=== PATIENT | male | born 1995 | race Asian ===

== ENCOUNTER 2022-04-14 20:56 | Emergency (ER) | payer BC, SELFPAY ==
[2022-04-14 21:26] VITALS: BP 129/76; PULSE 93; RESP 17; TEMP 36.6; O2SAT 99
--- NOTE | 2022-04-14 22:19 | ED.ANIMALBIT ---
HPI - Animal Bite General Chief Complaint: Animal Bite Stated Complaint: Dog Bite Time Seen by Provider: 04/14/22 21:47 History of Present Illness HPI narrative: Patient is a 26-year-old male here for evaluation of a dog bite to his right ear sustained about 1 hour prior to arrival. Patient states that he was playing with his [place] he was fully vaccinated when the dog jumped up and nipped him on his ear. Bleeding controlled prior to arrival. Patient is unsure of his last tetanus shot. Related Data Allergies Allergy/AdvReac Type Severity Reaction Status Date / Time No Known Allergies Allergy Verified 04/14/22 21:29 Review of Systems Review of Systems: Gen.: Denies fevers or chills Eyes: Denies eye pain or visual change ENT: Denies congestion Respiratory: Denies shortness of breath or cough CV: Denies chest pain or palpitations GI: Denies abdominal pain nausea, emesis or diarrhea denies burning, urgency, frequency or hematuria Musculoskeletal: Denies back pain or muscle pain Neuro: Denies numbness, tingling, weakness or focal weakness Skin: Reports puncture wound to right ear Except as documented, all other systems reviewed and negative Exam Narrative: APPEARANCE: Well appearing, no pain in distress, well-nourished. Head: Normocephalic and atraumatic. EYES: PERRLA/EOMI, conjunctivae clear NOSE: No nasal drainage EARS: External ear normal in appearance THROAT: Oropharynx is clear. Mucous membranes are moist. NECK: Supple. No adenopathy, no masses. RESPIRATORY: Airway patent, respirations nonlabored. Clear to auscultation bilaterally, no rales, rhonchi, wheezing. CARDIOVASCULAR: Regular rate and rhythm without murmurs, rubs, or gallops. ABDOMINAL: Normoactive bowel sounds. Soft, nontender, nondistended. No rebound tenderness or guarding. MUSCULOSKELETAL: Extremities are warm and well-perfused. Moves all extremities well. No edema. NEURO: Normal speech. No focal neurologic deficits. SKIN: Patient has two 4 mm puncture wounds to the superior aspect of his right ear with no active bleeding PSYCHIATRIC: Normal affect/mood. Course Vital Signs Vital signs: Vital Signs Temperature 97.9 F 04/14/22 21:26 Pulse Rate 93 04/14/22 21:26 Respiratory Rate 17 04/14/22 21:26 Blood Pressure 129/76 04/14/22 21:26 Pulse Oximetry 99 04/14/22 21:26 Temperature 97.9 F 04/14/22 21:26 Pulse Rate 93 04/14/22 21:26 Respiratory Rate 17 04/14/22 21:26 Blood Pressure 129/76 04/14/22 21:26 Pulse Oximetry 99 04/14/22 21:26 MDM - Animal Bite MDM Narrative Medical decision making narrative: 26 year old male here for evaluation of a dog bite (his own, vaccinated dog) to his right ear. 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 Wounds were irrigated extensively in the ED. [place] closure given high risk of infection. No need for rabies vaccine. He will be discharged with antibiotics; tetanus shot was updated in the ED. Return precautions discussed and he voiced understanding. Discharge Plan Discharge Clinical Impression: Bite by animal Patient Disposition: Home, Self-Care Condition: Stable Instructions: Antibiotic Form, Animal Bite (ED) Additional Instructions: Please keep the wound exposed to air for the next 24 hours, then keep it clean dry and covered. Take the antibiotic as directed. Return to the emergency department if you develop a fever of 100.4, there is redness around the wound, there is severe pain. Alternate between Tylenol and ibuprofen. You can take 1000mg of Tylenol every 6 hours and 800 mg Motrin/ibuprofen every 8 hours. Follow-up with your primary care doctor next week. Prescriptions: New amoxicillin-pot clavulanate 875-125 mg tablet 1 tablet PO Q12H Qty: 14 0RF Follow-up/Referrals: PHYSICIAN NOT ON STAFF,NONSTAFF [Primary Care Provider] -
[2022-04-14] MEDS: TETANUS,DIPHTHERIA,AC PERTUSSIS ADULT (0.5 ML) BOOSTRIX IM (22:23)
== END 2022-04-14 22:37 | disposition home or self-care (01) ==
PROVIDERS: Emergency Provider Emergency Medicine
DX: S01.351A Open bite of right ear, initial encounter (principal); Z23 Encounter for immunization; W54.0XXA Bitten by dog, initial encounter
CPT/HCPCS: 90471; 90715; 99283

== ENCOUNTER 2022-06-20 12:44 | Emergency (ER) | payer BC, SELFPAY ==
--- NOTE | 2022-06-20 12:53 | ED.UPPEXIN ---
HPI - Extremity Injury (Upper) General Chief Complaint: Extremity Injury, Upper Stated Complaint: lt thumb injury Time Seen by Provider: 06/20/22 12:53 Source: patient and RN notes reviewed History of Present Illness HPI narrative: Patient is a 26-year-old male who presents to urgent care with complaints of a burn to the left thumb. Patient states that on Monday he burnt it while wearing a cotton glove. Patient states he cleaned it out with peroxide but was concerned that part of the glove may have been burned into his skin. No other acute complaints. No acute distress noted. Patient aware of the plan care. Some parts of this dictation were generated by voice recognition software and may contain typographical and/or grammatical inaccuracies. Related Data Allergies Allergy/AdvReac Type Severity Reaction Status Date / Time No Known Allergies Allergy Verified 06/20/22 13:02 Review of Systems Review of Systems: CONSTITUTIONAL: Denies fever, chills, or sweats. EYES: Denies visual changes, redness, or discharge. ENT: Denies rhinorrhea, congestion, sore throat, or otalgia. CARDIOVASCULAR: Denies chest pain, palpitations, or edema. RESPIRATORY: Denies cough or dyspnea. GASTROINTESTINAL: Denies abdominal pain, nausea, vomiting, or diarrhea. GENITOURINARY: Denies dysuria or hematuria. SKIN: Reports of a burn to the left thumb MUSCULOSKELETAL: Denies back pain, joint pain, or myalgia. NEUROLOGIC: Denies headache, numbness, or weakness. All other systems reviewed are negative, except as documented in HPI. PMFSH Comments At the time of my signature, I reviewed and agree with the nursing past medical, surgical, social, and family history. There is no relevant family history pertinent to the patient complaint. Exam Narrative: GENERAL: This is a well-nourished, well-developed patient, in no apparent distress. HEAD: normocephalic, atraumatic. EYES: PERRL. Sclera clear/white. Vision is grossly intact. EARS: External ears normal NOSE: External nose normal with no obvious nasal discharge, nares without redness, no rhinorrhea. THROAT: Mucous membranes moist NECK: Neck supple SKIN: Superficial 1st degree burn with 2 cm linear superficial wound to the test of the left thumb NEURO: awake, alert, and oriented to person, place and time. There were no obvious focal neurologic abnormalities. EXTREMITIES: No clubbing, cyanosis, or edema. Positive strong left radial pulse with capillary refill less than 2 seconds. Course Course Level of Care: Express Care Visit Vital Signs Vital signs: Vital Signs Temperature 98.2 F 06/20/22 12:55 Pulse Rate 16 L 06/20/22 12:55 Respiratory Rate 16 06/20/22 12:55 Blood Pressure 105/77 06/20/22 12:55 Pulse Oximetry 98 06/20/22 12:55 Oxygen Delivery Room Air 06/20/22 12:55 Temperature 98.2 F 06/20/22 12:55 Pulse Rate 16 L 06/20/22 12:55 Respiratory Rate 16 06/20/22 12:55 Blood Pressure 105/77 06/20/22 12:55 Pulse Oximetry 98 06/20/22 12:55 Oxygen Delivery Room Air 06/20/22 12:55 Reviewed Procedures Other Procedure Procedure 1: Other Procedure: 2 cm superficial burn to the tuft of the left thumb scrubbed with technique care and warm water. Scant black debris removed with tweezers. Patient tolerated well. Discussed with the patient that it is unknown whether that is part of his glove or the healing process. MDM - Extremity Injury (Upper) MDM Narrative Medical decision making narrative: Advised patient to keep the wound very clean with plain doubt soap and water. Keep it covered if at risk of being sold, with a simple bandage. Use the prescription cream to the affected area. Do not use any peroxide or alcohol to the wound. Follow-up with your PCP within 2-5 days or for worsening symptoms or failure to improve. Differential Diagnosis Differential diagnosis: Likely sprain and strain of wrist, fracture of wrist, finger sprain, dislocation of finger, C
[2022-06-20 12:55] VITALS: BP 105/77; PULSE 16; RESP 16; TEMP 36.8; O2SAT 98
== END 2022-06-20 13:47 | disposition home or self-care (01) ==
PROVIDERS: Emergency Provider Nurse Practitioner Family
DX: T23.112A Burn of first degree of left thumb (nail), initial encounter (principal); T31.0 Burns involving less than 10% of body surface; X19.XXXA Contact with other heat and hot substances, initial encounter
CPT/HCPCS: 99213; G0463

== ENCOUNTER 2023-06-23 14:14 | Emergency (ER) | payer BC, SELFPAY ==
[2023-06-23 14:26] VITALS: BP 104/75; PULSE 90; RESP 16; TEMP 36.6
--- NOTE | 2023-06-23 15:31 | ED_ITS ---
HPI - Back Pain/Injury General Chief Complaint: Back Pain/Injury Stated Complaint: lower back pain Time Seen by Provider: 06/23/23 14:49 History of Present Illness HPI Narrative: 27-year-old male present to the emergency department for evaluation of low back pain. patient reports yesterday he sneezed and injured his lower back. Patient denies any associated numbness or weakness. Patient denies any change in bowel or bladder habits. Patient does report back spasms when transitioning from sitting to standing. Related Data Allergies Allergy/AdvReac Type Severity Reaction Status Date / Time No Known Allergies Allergy Verified 06/23/23 14:15 Review of Systems Review of Systems: All systems reviewed & are unremarkable except as noted in HPI and below Exam Narrative: APPEARANCE: Well appearing, no pain, no distress, well-nourished. HEAD: normocephalic, atraumatic. EYES: PERRLA/EOMI, conjunctivae clear. NOSE: Normal no drainage EARS:TMS clear with good light reflex. THROAT: Pharynx clear, no exudate. NECK: Supple. No adenopathy, no masses. RESPIRATORY: Airway patent, respirations nonlabored. Clear to auscultation bilaterally, no rales, rhonchi, wheezing. CARDIOVASCULAR: Regular rate and rhythm without murmurs rubs or gallops. ABDOMINAL: Soft, nontender, nondistended, normal bowel sounds MUSCULOSKELETAL: Mild paraspinal muscularlumbar tenderness NEURO: Alert. Cranial nerves II through XII intact. neurologically intact Course Course Emergency Course: 27-year-old male presenting for evaluation of lower back spasms. patient is neurologically intact. Patient and family are updated on the plan for treatment at home. All questions and concerns were addressed. Vital Signs Vital signs: Vital Signs Temperature 97.9 F 06/23/23 14:26 Pulse Rate 90 06/23/23 14:26 Respiratory Rate 16 06/23/23 14:26 Blood Pressure 104/75 06/23/23 14:26 Oxygen Delivery Room Air 06/23/23 14:26 Temperature 97.9 F 06/23/23 14:26 Pulse Rate 90 06/23/23 14:26 Respiratory Rate 16 06/23/23 14:26 Blood Pressure 104/75 06/23/23 14:26 Oxygen Delivery Room Air 06/23/23 14:26 Discharge Plan Discharge Clinical Impression: Strain of lumbar region Patient Disposition: Home, Self-Care Condition: Stable Instructions: Antibiotic Form, Acute Low Back Pain (ED) Additional Instructions: Naproxen scheduled for pain control. Flexeril for muscle spasm. Osborne as needed for breakthrough pain. Have close follow-up with your primary care physician. 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
[2023-06-23] MEDS: NAPROXEN 500 MG TABLET PO (15:41)
[2023-06-23] MEDS: CYCLOBENZAPRINE HCL 10 MG TABLET PO (15:41)
[2023-06-23] MEDS: HYDROcodone/acetaminophen (*CRX) 5-325 MG TABLET 1 TAB PO (15:41)
== END 2023-06-23 15:46 | disposition home or self-care (01) ==
PROVIDERS: Emergency Provider Emergency Medicine
DX: S39.012A Strain of muscle, fascia and tendon of lower back, initial encounter (principal); X50.9XXA Other and unspecified overexertion or strenuous movements or postures, initial encounter
CPT/HCPCS: 99283; A9270